=== PATIENT | male | born 2000 | race Two or more races ===

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

== ENCOUNTER 2021-01-15 17:50 | Emergency (ER) | payer OTHER, MEDICAID ==
[~2021-01-15] VITALS: Ht 167.6 cm; Wt 52.2 kg
[2021-01-15 17:56] VITALS: BP 116/65
== END 2021-01-15 18:27 | disposition left against medical advice (07) ==
LOC: ER 17:50
DX: F41.9 Anxiety disorder, unspecified (principal); R51.9 Headache, unspecified; Z53.21 Procedure and treatment not carried out due to patient leaving prior to being seen by health care provider

== ENCOUNTER 2021-06-24 18:49 | Emergency (ER) | payer MEDICAID, OTHER ==
[~2021-06-24] VITALS: Ht 172.7 cm; Wt 59.0 kg
[2021-06-24 18:58] VITALS: BP 107/74
== END 2021-06-24 23:29 | disposition home or self-care (01) ==
LOC: ER 18:50
DX: U07.1 COVID-19 (principal); J02.9 Acute pharyngitis, unspecified
CPT/HCPCS: 36415; 71045; 87426